=== PATIENT | female | born 1945 | race Caucasian/White ===

== ENCOUNTER 2019-02-13 13:22 | Inpatient (IN) ==
[2019-02-13] MEDS ORDERED: ZOFRAN IV ONE (14:14)
[2019-02-13] MEDS ORDERED: NS 1,000 ML IV ONE (14:17)
[2019-02-13 14:51] LABS: BASO# 0.01 X1000 (0.0-0.2); BASO% 0.1 % (0.0-0.8); EOS# 0.03 X1000 (0.0-0.7); EOS% 0.3 % (0.0-10.0); HEMATOCRIT 40.8 % (37.0-47.0); HEMOGLOBIN 12.8 g/dL (12.0-16.0); IMM GRAN# 0.01 X1000 (0.0-0.04); IMM GRAN% 0.1 % (0.0-0.5); LYMPH# 1.07 X1000 (1.2-3.4); LYMPH% 10.8 % (20.5-51.1); MCHC 31.4 g/dL (33-37); MCV 92.3 FL (81-99); MONO# 0.36 X1000 (0.11-0.59); MONO% 3.6 % (1.7-9.3); MPV 12.3 FL (7.4-10.4); NEUT# 8.46 X1000 (1.4-6.5); NEUT% 85.1 % (42.2-75.2); PLT 204 X1000 (130-400); RBC 4.42 XMIL (4.2-5.4); RDW 13.2 % (11.5-14.5); WBC 9.94 X1000 (4.8-10.8)
[2019-02-13 15:05] LABS: ALBUMIN 4.3 g/dL (3.5-5.0); CALCIUM 9.1 mg/dL (8.8-10.2); CREATININE 1.4 mg/dL (0.5-0.9); POTASSIUM 4.3 mmol/L (3.5-5.1); TOTAL BILIRUBIN 0.3 mg/dL (0.20-1.00); TOTAL PROTEIN 7.2 g/dL (6.3-8.3)
[2019-02-13] MEDS: HUMULIN R IV ONE ×2 (15:59→16:32)
[2019-02-13] MEDS ORDERED: HUMULIN R (PARKWAY) ONE (16:02)
[2019-02-13 16:15] LABS: INR 0.94
[2019-02-13 16:16] LABS: PTT 30.9 Seconds (22.3-41.8)
--- NOTE | 2019-02-13 16:47 | Diag Imaging Result Doc PS360 ---
EXAM: CT ABDOMEN/PELVIS W/O CONTRAST - 02/13/2019 HISTORY: abdo pain TECHNIQUE: CT abdomen/pelvis without contrast. No contrast administered per request of the referring provider. COMPARISON: None. FINDINGS: There is limitation of detail due to the lack of administered contrast. The visualized lung bases appear clear. There are no substantial abnormalities of the liver, spleen, adrenal glands, or pancreas identified. There are no calcified gallstones or pericholecystic inflammation identified. There is a small nonobstructing stone at the lower left kidney. There is no obstructing renal stone or hydronephrosis identified. The left kidney is small/atrophic. The right kidney is normal size. There are no substantially enlarged lymph nodes identified. There are extensive atherosclerotic calcifications noted. The right common iliac artery is ectatic up to 1.6 cm. There are lumbar spine degenerative changes with apparent multilevel spinal stenosis noted. There is no evidence of bowel obstruction. There is extensive colonic diverticulosis. There is apparent mild wall thickening along the sigmoid which may relate to mild colitis or possibly mild diverticulitis, but there is no discrete inflamed diverticulum identified. There is no free air or abscess identified. Images of pelvis otherwise show postsurgical changes of partial hysterectomy. There are old fracture deformities of the right pubis noted. IMPRESSION: Small/atrophic left kidney. Small nonobstructing stone in lower left kidney. No hydronephrosis. Extensive colonic diverticulosis. Apparent mild wall thickening along the sigmoid colon which may relate to mild colitis or possibly mild diverticulitis, but there is no discrete inflamed diverticulum identified. No abscess. No free air. Extensive atherosclerotic calcifications noted. Lumbar spine degenerative changes with apparent multilevel spinal stenosis noted. This exam was performed using automated exposure control, adjustment of mA or kV according to patient size, and/or use of iterative reconstruction technique. Electronically signed by Narciso Jacobo 02/13/2019 4:45 PM
[2019-02-13] MEDS ORDERED: FLAGYL PO ONE (16:54)
[2019-02-13] MEDS ORDERED: LEVAQUIN PO ONE (16:54)
[2019-02-13 18:06] LABS: BILIRUBIN URINE NEGATIVE (NEGATIVE); BLOOD URINE 1+ (NEGATIVE); CLARITY SL. CLOUDY (CLEAR); COLOR YELLOW; KETONE URINE NEGATIVE (NEGATIVE); LEUKOCYTES URINE 2+ (NEGATIVE); NITRITE URINE POSITIVE (NEGATIVE); PH URINE 6.5; PROTEIN URINE TRACE mg/dL (NEGATIVE); SP GRAVITY URINE 1.015; UROBILINOGEN URINE NORMAL
[2019-02-13 18:23] LABS: URINE SOURCE CLEAN CATCH
[2019-02-13 18:24] LABS: URINE BACTERIA 4+ /HFP; URINE CAST NONE SEEN /LPF; URINE CRYSTAL NONE SEEN /HPF; URINE EPITHELIAL CELLS >10 /HPF (<10); URINE WBC TNTC /HPF (<10); URINE YEAST NONE SEEN /HPF
[2019-02-13] MEDS ORDERED: LEVAQUIN 500 MG/D5W 500 MG/100 ML IVPB IV ONE (18:36)
[2019-02-13] MEDS ORDERED: FLAGYL 500 MG/NS 500 MG/100 ML IVPB IV ONE (18:36)
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
[2019-02-13] MEDS ORDERED: ZOFRAN PO PRN (18:37)
[2019-02-13] MEDS ORDERED: DEMEROL IV PRN (18:44)
[2019-02-13] MEDS ORDERED: ZOFRAN ODT ONE (20:07)
[2019-02-13] MEDS: ROCEPHIN 1 GM in NS 50 ML IV SCH (20:15)
[2019-02-13] MEDS: ZOFRAN ODT PO PRN (20:15)
[2019-02-13] MEDS: FLAGYL 500 MG/NS 500 MG/100 ML IVPB IV SCH (22:12)
[2019-02-13] MEDS ORDERED: XANAX PO SCH (22:31)
[2019-02-13] MEDS ORDERED: CRESTOR PO SCH (22:45)
[2019-02-13] MEDS ORDERED: MELATONIN PO SCH (22:45)
[2019-02-13] MEDS: COREG PO SCH (23:12)
[2019-02-13] MEDS: PROTONIX PO SCH (23:13)
[2019-02-13] MEDS: CARAFATE PO SCH (23:13)
[2019-02-13] MEDS: BENTYL PO PRN (23:13)
[2019-02-13] MEDS: ALTACE PO SCH (23:23)
[2019-02-13] MEDS: KLOR-CON PO SCH (23:27)
[2019-02-13] MEDS: LANTUS INSULIN SUBQ SCH (23:27)
[2019-02-13] MEDS: LASIX PO SCH (23:28)
[2019-02-14] MEDS: FLAGYL 500 MG/NS 500 MG/100 ML IVPB IV SCH ×4 (04:43→22:15)
[2019-02-14] MEDS: ASPIRIN EC PO SCH ×2 (06:00→06:10)
[2019-02-14] MEDS: IMDUR PO SCH ×2 (06:10→12:02)
[2019-02-14] MEDS: LANTUS INSULIN SUBQ SCH ×2 (06:17→12:03)
[2019-02-14] MEDS: HUMALOG SUBQ PRN ×3 (06:19→17:45)
[2019-02-14 06:29] LABS: BASO# 0.02 X1000 (0.0-0.2); BASO% 0.3 % (0.0-0.8); EOS# 0.23 X1000 (0.0-0.7); EOS% 3.3 % (0.0-10.0); HEMATOCRIT 38.5 % (37.0-47.0); HEMOGLOBIN 11.8 g/dL (12.0-16.0); IMM GRAN# 0.01 X1000 (0.0-0.04); IMM GRAN% 0.1 % (0.0-0.5); LYMPH% 22.6 % (20.5-51.1); MCHC 30.6 g/dL (33-37); MCV 94.6 FL (81-99); MONO# 0.92 X1000 (0.11-0.59); MPV 11.9 FL (7.4-10.4); NEUT# 4.29 X1000 (1.4-6.5); NEUT% 60.7 % (42.2-75.2); PLT 178 X1000 (130-400); RBC 4.07 XMIL (4.2-5.4); RDW 13.6 % (11.5-14.5); WBC 7.07 X1000 (4.8-10.8)
[2019-02-14 07:00] LABS: ALBUMIN 3.6 g/dL (3.5-5.0); CALCIUM 8.6 mg/dL (8.8-10.2); CREATININE 1.3 mg/dL (0.5-0.9); TOTAL BILIRUBIN 0.2 mg/dL (0.20-1.00); TOTAL PROTEIN 6.2 g/dL (6.3-8.3)
[2019-02-14] MEDS ORDERED: SYNTHROID PO SCH (07:00)
[2019-02-14] MEDS: CARAFATE PO SCH ×3 (09:00→16:37)
[2019-02-14] MEDS ORDERED: LASIX PO SCH ×2 (09:00→12:00)
[2019-02-14] MEDS: ALTACE PO SCH (09:00)
[2019-02-14] MEDS ORDERED: FOLIC ACID PO SCH (09:00)
[2019-02-14] MEDS ORDERED: SINGULAIR PO SCH (09:00)
[2019-02-14] MEDS: COREG PO SCH (09:00)
[2019-02-14] MEDS: LASIX PO SCH (09:00)
[2019-02-14] MEDS ORDERED: KLOR-CON PO SCH ×4 (09:00→12:00)
[2019-02-14] MEDS ORDERED: CALTRATE 600 PO SCH (09:00)
[2019-02-14] MEDS ORDERED: VITAMIN D PO SCH (09:00)
[2019-02-14] MEDS ORDERED: COREG PO SCH (09:00)
[2019-02-14] MEDS ORDERED: PLAVIX PO SCH ×2 (09:00→17:00)
[2019-02-14] MEDS ORDERED: VICON-C PO SCH (09:00)
[2019-02-14] MEDS: PROTONIX PO SCH (09:00)
[2019-02-14] MEDS: KLOR-CON PO SCH (09:00)
[2019-02-14] MEDS: BENTYL PO PRN ×3 (09:15→23:55)
[2019-02-14] MEDS: ZOFRAN ODT PO PRN (11:09)
[2019-02-14] MEDS: PATIENT'S OWN MED PO SCH ×10 (12:04→23:09)
--- NOTE | 2019-02-14 12:16 | HISTORY AND PHYSICAL ---
ADDENDUM: ASSESSMENT AND PLAN: Complaints of right flank pain with urinary infection, so likely right pyelonephritis or acute cystitis, but either way, she is on Rocephin. Will continue that. She states she does have a history of chronic urinary tract infections. Dictated by RUPAL Cooper for Cornelio Wright MD cc: RUPAL Cooper MD
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
[2019-02-14 13:47] LABS: C DIFF TOXIN PL NEGATIVE (NEGATIVE)
[2019-02-14 13:59] LABS: OCCULT BLOOD 1 POSITIVE (NEGATIVE)
[2019-02-14] MEDS ORDERED: PATIENT'S OWN MED TD SCH (14:00)
[2019-02-14] MEDS: MYLICON PO PRN ×2 (14:10→23:55)
[2019-02-14] MEDS: ROCEPHIN 1 GM in NS 50 ML IV SCH (17:44)
[2019-02-14] MEDS ORDERED: PATIENT'S OWN MED SUBQ PRN (19:48)
[2019-02-14] MEDS ORDERED: CRESTOR PO SCH (21:00)
[2019-02-14] MEDS: PATIENT'S OWN MED SUBQ SCH (23:54)
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
[2019-02-15] MEDS: FLAGYL 500 MG/NS 500 MG/100 ML IVPB IV SCH ×4 (06:07→21:56)
[2019-02-15 06:35] LABS: BASO# 0.02 X1000 (0.0-0.2); BASO% 0.3 % (0.0-0.8); EOS# 0.36 X1000 (0.0-0.7); EOS% 4.8 % (0.0-10.0); HEMOGLOBIN 11.9 g/dL (12.0-16.0); IMM GRAN# 0.02 X1000 (0.0-0.04); IMM GRAN% 0.3 % (0.0-0.5); LYMPH# 2.24 X1000 (1.2-3.4); LYMPH% 29.7 % (20.5-51.1); MCHC 30.5 g/dL (33-37); MCV 94.9 FL (81-99); MONO# 0.89 X1000 (0.11-0.59); MONO% 11.8 % (1.7-9.3); MPV 12.1 FL (7.4-10.4); NEUT# 4.02 X1000 (1.4-6.5); NEUT% 53.1 % (42.2-75.2); PLT 193 X1000 (130-400); RBC 4.11 XMIL (4.2-5.4); RDW 13.6 % (11.5-14.5); WBC 7.55 X1000 (4.8-10.8)
[2019-02-15 06:45] LABS: ALBUMIN 3.6 g/dL (3.5-5.0); CALCIUM 8.6 mg/dL (8.8-10.2); CREATININE 1.6 mg/dL (0.5-0.9); POTASSIUM 3.9 mmol/L (3.5-5.1); TOTAL BILIRUBIN 0.2 mg/dL (0.20-1.00); TOTAL PROTEIN 6.2 g/dL (6.3-8.3)
[2019-02-15] MEDS ORDERED: SYNTHROID PO SCH (07:00)
[2019-02-15] MEDS: ZOFRAN ODT PO PRN (08:57)
[2019-02-15] MEDS ORDERED: PATIENT'S OWN MED PO SCH ×2 (09:00→17:00)
[2019-02-15] MEDS: PATIENT'S OWN MED PO SCH ×27 (12:11→21:55)
[2019-02-15] MEDS: PATIENT'S OWN MED SUBQ SCH ×2 (12:50→21:50)
[2019-02-15] MEDS: MYLICON PO PRN (14:38)
--- NOTE | 2019-02-15 15:01 | PROGRESS NOTE ---
DATE: 02/15/2019 SUBJECTIVE: The patient reports feeling fine. Mild pain in the right upper quadrant. OBJECTIVE: Vital Signs: Temperature 97.6 degrees, heart rate 65, respiratory rate 16, blood pressure 147/51, and O2 saturation 95% on room air. General: On examination, this is a 73-year- old female lying in bed, in no acute distress. Cardiovascular: S1, S2 heard. No murmurs, gallops, or rubs. Regular rate and rhythm. Respiratory: Clear bilaterally to auscultation. No work of breathing. Not using accessory muscles. Abdomen: Soft. Mild tenderness to palpation in the right upper quadrant. Neurological: Patient is alert and oriented x3. Moves 4 extremities. LABORATORY DATA: Reviewed. The creatinine is 1.6. ASSESSMENT AND PLAN: 1. Sigmoid diverticulitis with spastic colon. The patient is on Rocephin and Bentyl, and pain control we are using Demerol. Clinically this patient is doing fine. Because this patient is complaining of right upper quadrant pain, I prefer to go ahead and check an abdominal ultrasound considering that all her family has gallbladder problems. 2. Irritable bowel syndrome. We will continue with Bentyl. 3. Diabetes mellitus type 2. We will continue with sliding scale insulin and Accu-Chek before meals and also at bedtime. 4. History of systolic congestive heart failure. We will continue with Coreg and Lasix. No signs of exacerbation. 5. Chronic kidney disease stage 3. Creatinine is at her baseline. We will continue to monitor. 6. Disposition. If there is no gallbladder pathology and patient is having less abdominal pain, she can be discharged tomorrow. cc: Jose Prater MD
--- NOTE | 2019-02-15 15:27 | Diag Imaging Result Doc PS360 ---
EXAM: US ABDOMEN-COMPLETE - 02/15/2019 HISTORY: pain, RUQ TECHNIQUE: Ultrasound abdomen COMPARISON: 02/13/2019 CT abdomen/pelvis FINDINGS: The gallbladder is visualized and demonstrates no abnormalities. There is no evidence of gallstones. The technologist reports negative sonographic Ramirez's sign. The common bile duct is upper normal in caliber at 6.8 mm. There is no stone identified in the visualized portion of the common bile duct. The pancreatic duct is borderline distended at 3.6 mm. This was not apparent on the prior CT, although there are some calcifications in the pancreatic head region visible on the CT, which can be seen with chronic pancreatitis. Visualized portions of pancreas are otherwise unremarkable. There are no abnormalities of the liver or spleen identified. Doppler image shows hepatopedal flow in the portal vein. There is no ascites seen. The right kidney is unremarkable. The left kidney is small/atrophic. There is no evidence of hydronephrosis. The visualized IVC is of normal caliber. The aorta is obscured by bowel gas artifacts. IMPRESSION: No visible gallbladder abnormality. No evidence of gallstones. Upper normal common bile duct caliber at 6.8 mm. Borderline distended pancreatic duct at 3.6 mm. This is of uncertain clinical significance, although it possibly could relate to chronic pancreatitis. No visible pancreatic lesion otherwise. Small/atrophic left kidney. Electronically signed by Narciso Jacobo 02/15/2019 3:25 PM
[2019-02-15] MEDS: ROCEPHIN 1 GM in NS 50 ML IV SCH (18:42)
[2019-02-15] MEDS: BENTYL PO PRN (18:52)
[2019-02-16 05:54] LABS: ALBUMIN 4.1 g/dL (3.5-5.0); CALCIUM 8.8 mg/dL (8.8-10.2); CREATININE 1.4 mg/dL (0.5-0.9); POTASSIUM 3.5 mmol/L (3.5-5.1); TOTAL BILIRUBIN 0.2 mg/dL (0.20-1.00); TOTAL PROTEIN 6.8 g/dL (6.3-8.3)
[2019-02-16 06:02] LABS: BASO# 0.03 X1000 (0.0-0.2); BASO% 0.4 % (0.0-0.8); HEMATOCRIT 42.2 % (37.0-47.0); IMM GRAN# 0.01 X1000 (0.0-0.04); IMM GRAN% 0.1 % (0.0-0.5); LYMPH# 1.93 X1000 (1.2-3.4); MCH 29.1 PG (27-31); MCHC 30.8 g/dL (33-37); MCV 94.6 FL (81-99); MONO# 0.99 X1000 (0.11-0.59); MONO% 12.3 % (1.7-9.3); MPV 12.2 FL (7.4-10.4); NEUT# 4.68 X1000 (1.4-6.5); NEUT% 58.2 % (42.2-75.2); PLT 207 X1000 (130-400); RBC 4.46 XMIL (4.2-5.4); RDW 13.5 % (11.5-14.5); WBC 8.04 X1000 (4.8-10.8)
[2019-02-16] MEDS: FLAGYL 500 MG/NS 500 MG/100 ML IVPB IV SCH (06:30)
[2019-02-16] MEDS: PATIENT'S OWN MED PO SCH ×15 (06:31→10:25)
[2019-02-16 07:26] VITALS: BP 148/48
[2019-02-16] MEDS: PATIENT'S OWN MED SUBQ SCH (08:20)
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
== END 2019-02-16 12:10 | disposition home or self-care (01) | DRG 392 ==
LOC: P.ED 13:22 → SUATTDRO 20:14 → P.MEDSURG 20:14
PROVIDERS: ATTEND Internal Medicine